=== PATIENT | female | born 2000 | race Caucasian/White ===

== ENCOUNTER 2022-06-13 23:17 | Inpatient (IN) | payer OTHER, SELFPAY ==
[2022-06-13 23:25] VITALS: BP 103/57; PULSE 81; RESP 18; TEMP 36.4; O2SAT 99; BMI 21.2
--- NOTE | 2022-06-13 23:57 | ECG_ITS ---
Test Reason : SI Blood Pressure : / mmHG Vent. Rate : 083 BPM Atrial Rate : 083 BPM P-R Int : 134 ms QRS Dur : 088 ms QT Int : 356 ms P-R-T Axes : 056 075 044 degrees QTc Int : 418 ms Normal sinus rhythm with sinus arrhythmia Normal ECG No previous ECGs available Referred By: Khari Godwin Electronically Signed By:LEIGHANN EVANS MD
--- NOTE | 2022-06-13 23:59 | ED_ITS ---
HPI - Psych General Chief Complaint: Psychiatric Symptoms <ROMEL Burns - Last Filed: 06/14/22 01:21> Stated Complaint: Crisis <ROMEL Burns Last Filed: 06/14/22 01:21> Time Seen by Provider: 06/13/22 23:54 <ROMEL Burns Last Filed: 06/14/22 01:21> Source: patient <ROMEL Burns - Last Filed: 06/14/22 01:21> Mode of arrival: ambulatory <ROMEL Burns Last Filed: 06/14/22:21> Limitations: no limitations <ROMEL Burns Last Filed: 06/14/22 01:21> History of Present Illness HPI Narrative: 22-year-old female history of anxiety, depression, bipolar disorder, PTSD, ADHD presents to the emergency department with suicidal ideation and a suicide attempt last night Patient tells me the symptoms have been worsening over the past few days. She reports that yesterday she had a suicide attempt and she took a handful of Ativan pills in hopes to kill herself. She tells me she took a handful of 0.1 mg lorazepam so, unable to tell me exactly how many she took or estimate. She tells me after she took the medication she felt sleepy and dizzy, fell sleep and felt much better in the morning. Currently not reporting any symptoms. She tells me that she has increasing life stressors however unwilling to discuss exactly what they are. She tells me she is having visual hallucinations and is seeing dark shadows, she tells me I do not let them talk to me ?and ?I try not to interact with them ?. She denies auditory and tactile hallucinations. Denies homicidal ideation. Drugs alcohol and tobacco. Patient without any medical complaints at this time. She tells me she has never had a suicide attempt in the past. Patient is currently being followed by psychiatrist Kylie at [facility]. And is currently followed by therapist at the same place her name is Helena Ojeda. <ROMEL Burns Last Filed: 06/14/22 01:21> MD complaint: suicidal ideation and feels depressed <ROMEL Burns Last Filed: 06/14/22 01:21> Related Data Home Medications: Home Medications Medication Instructions Recorded Confirmed amoxicillin 500 mg tablet 1,000 mg PO Q12H 06/14/22 06/14/22 dextroamphetamine-amphetamine ER 10 mg PO QAM 06/14/22 06/14/22 10 mg 24hr capsule,extend release (Adderall XR) lorazepam 0.5 mg tablet 1 tab PO DAILY PRN Anxiety 06/14/22 06/14/22 oxcarbazepine 600 mg tablet 600 mg PO BEDTIME 06/14/22 06/14/22 prazosin 1 mg capsule 3 mg PO BEDTIME 06/14/22 06/14/22 quetiapine 200 mg tablet,extended 200 mg PO BEDTIME 06/14/22 06/14/22 release 24 hr (Seroquel XR) quetiapine 50 mg tablet,extended 50 mg PO BEDTIME 06/14/22 06/14/22 release 24 hr (Seroquel XR) <ROMEL Burns Last Filed: 06/14/22 01:21> Allergies/Adverse Reactions: Allergies Allergy/AdvReac Type Severity Reaction Status Date / Time No Known Allergies Allergy Verified 06/13/22 23:33 <ROMEL Burns Last Filed: 06/14/22 01:21> Review of Systems Review of Systems: Constitutional : No Fever, No Chills ENT/Mouth : No Ear Pain, No Nasal Congestion, No sore throat Eyes: No Eye Pain, No Swelling, No Redness Cardiovascular : No Chest Pain, No SOB Respiratory : No Cough, No Sputum, No Dyspnea Gastrointestinal : No Nausea, No Vomiting, No Diarrhea, No Hematochezia, No Melena Genitourinary : No Dysuria, No Urinary Frequency, No Hematuria Musculoskeletal : No Myalgias Skin : No Skin Lesions, No rash Neuro : No Weakness, No Numbness, No Paresthesias, No Dizziness, No Headache Psych : positive Anxiety, positive Depression, positive SI, No HI Heme/Lymph: No Lymphadenopathy Endocrine : No Polyuria, No Polydipsia All other systems reviewed and are negative <ROMEL Burns Last Filed: 06/14/22 01:21> Yes all other systems are reviewed and are negative <ROMEL Burns - Last Filed: 06/14/22 01:21> [facility] Past Medical History Attestation statement: The following information was validated with the patient. <ROMEL Burns - Last Filed: 06/14/22 01:21> Source: old records reviewed and nursing notes reviewed <ROMEL Burns - Last Filed: 06/14/22 01:21> Social History Social History: Social History Alcohol intake: current Use of substances other than those prescribed or required for medical reasons: Yes Advance Directives: No Patient : No <ROMEL Burns - Last Filed: 06/14/22 01:21> Physical Exam Vital Signs: Vital Signs: Last Vital Signs Temp 97.9 F 06/14/22 09:21 Pulse 86 06/14/22 09:21 Resp 16 06/14/22 09:21 BP 106/60 06/14/22 09:21 Pulse Ox 96 06/14/22 09:21 O2 Del Method 06/14/22 09:21 BMI result Body Mass Index 21.2 vss <ROMEL Burns - Last Filed: 06/14/22 01:21> Vital Signs: Last Vital Signs Temp 97.9 F 06/14/22 09:21 Pulse 86 06/14/22 09:21 Resp 16 06/14/22 09:21 BP 106/60 06/14/22 09:21 Pulse Ox 96 06/14/22 09:21 O2 Del Method 06/14/22 09:21 BMI result Body Mass Index 21.2 <Adryan Flores MD - Last Filed: 06/14/22 12:56> Appearance: Alert.? Oriented X3.? No acute distress.? Head: Normocephalic, atraumatic, no step-offs or deformities Eyes: Pupils equal, round and reactive to light.? CVS: Normal heart rate and rhythm.? Pulses normal.? Respiratory: No respiratory distress.? Breath sounds normal.? Abdomen: Soft and nontender.? Skin: Skin warm and dry.? Normal skin color.? Normal skin turgor.? Extremities: No lower extremity edema.? No calf ttp. 5/5 strength to bilateral upper and lower extremities Neuro: Oriented X 3.? No motor deficit.? No sensory deficit. CN 2-12 intact <ROMEL Burns - Last Filed: 06/14/22 01:21> Course Reevaluation(s) Reevaluation #1: CBC appears to be within normal limits. Chemistry with no acute electrolyte abnormalities requiring intervention. Salicylates, acetaminophen and ethanol negative. COVID negative. Patient reports she is currently taking amoxicillin for strep throat, has no throat complaints at this time, controlling secretions well, no signs of respiratory distress speaking in full sentences. At this time will continue her home dose of amoxicillin for pharyngitis. Patient has taken 3 days worth therefore she should receive an additional 7 days worth. <ROMEL Burns - Last Filed: 06/14/22 01:21> Time: 01:19 <ROMEL Burns - Last Filed: 06/14/22 01:21> Reevaluation #2: At this time patient will be placed into physician observation to allow more time to be evaluated by the behavioral health team. At time observation was started patient on Section 12 common cooperative no acute distress will continue to monitor <ROMEL Burns - Last Filed: 06/14/22 01:21> Time: 01:20 <ROMEL Burns - Last Filed: 06/14/22 01:21> Reevaluation #3: Physician observation continued: 22-year-old female who presents emergency department for evaluation of suicide ideation and attempt yesterday by taking Ativan. She has been in the emergency department for approximately the 11 hours and 12 minutes. The patient is on a Section 12 and is waiting for care team evaluation. The patient had no complaints or incidents overnight. The patient will be kept in the emergency department Behavioral Health Unit until a disposition can be obtained. <Adryan Flores MD - Last Filed: 06/14/22 12:56> Time: 10:35 <Adryan Flores MD - Last Filed: 06/14/22 12:56> Consultations Time: 12:55 <Adryan Flores MD - Last Filed: 06/14/22 12:56> Medications Administered Generic Name Dose Route Start Last Admin Trade Name Freq PRN Reason Stop Dose Admin Amoxicillin 500 mg 06/14/22 09:00 06/14/22 08:35 Amoxicillin 500 Mg Capsule PO 500 mg BID CHICO Administration Discontinued Medications Generic Name Dose Route Start Last Admin Trade Name Freq PRN Reason Stop Dose Admin Amoxicillin 500 mg 06/14/22 01:19 06/14/22 01:57 Amoxicillin 500 Mg Capsule PO 06/14/22 01:20 500 mg ONCE ONE Administration <ROMEL Burns - Last Filed: 06/14/22 01:21> Medications Administered Generic Name Dose Route Start Last Admin Trade Name Freq PRN Reason Stop Dose Admin Amoxicillin 500 mg 06/14/22 09:00 06/14/22 08:35 Amoxicillin 500 Mg Capsule PO 500 mg BID CHICO Administration Discontinued Medications Generic Name Dose Route Start Last Admin Trade Name Freq PRN Reason Stop Dose Admin Amoxicillin 500 mg 06/14/22 01:19 06/14/22 01:57 Amoxicillin 500 Mg Capsule PO 06/14/22 01:20 500 mg ONCE ONE Administration <Adryan Flores MD - Last Filed: 06/14/22 12:56> MDM - Psych MDM Narrative Medical decision making narrative: 0000 22 year old female presents to the emergency department with depression, suicidal ideation progressively worsening over the past few days. Reports suicide attempt yesterday but trying to overdose on Ativan. Physical examination benign. Patient will be placed on a Section 12. Plan at this time medical clearance evaluation by the behavioral health team. Discussed this case w/ my attending who states no need to call poison control. <ROMEL Burns - Last Filed: 06/14/22 01:21> Medical Records Attestation: I reviewed the patient's medical records. <ROMEL Burns - Last Filed: 06/14/22 01:21> Lab Data Attestation: I reviewed the patient's lab results. <ROMEL Burns - Last Filed: 06/14/22 01:21> Result diagrams: : 06/14/22 00:44 06/14/22 00:44 <ROMEL Burns - Last Filed: 06/14/22 01:21> Labs: Lab Results 06/13/22 06/14/22 06/14/22 Range/Units 23:46 00:44 00:44 WBC 7.2 (4.8-10.8) X10*3/uL RBC 3.90 L (4.20-5.50) X10*6/uL Hgb 11.1 L (12.0-16.0) g/dl Hct 33.8 L (37.0-47.0) % MCV 86.7 (80.0-98.0) fL MCH 28.5 (27.0-33.0) pg MCHC 32.8 (31.0-35.0) g/dl RDW 13.1 (11.0-16.0) % Plt Count 256 (160-400) X10*3/uL MPV 9.9 (9.4-12.3) fL Immature Gran % (Auto) 0.3 (0.0-0.4) % Neut % (Auto) 60.5 (45-73) % Lymph % (Auto) 29.1 (20-40) % [place] % (Auto) 9.5 (2-11) % Eos % (Auto) 0.3 (0-4) % Baso % (Auto) 0.3 (0-2) % Lymph # (Auto) 2.1 (1.2-4.9) X10*3/uL [place] # (Auto) 0.7 (0.1-1.2) X10*3/uL Eos # (Auto) 0.0 (0.0-0.4) X10*3/uL Baso # (Auto) 0.0 (0.0-0.2) X10*3/uL Abs Immat Gran (auto) 0.02 (0.00-0.03) X10*3/uL Absolute Neuts (auto) 4.3 (2.0-8.3) x10*3/uL Absolute Nucleated RBC 0.000 (0.0-0.012) X10*3/uL Nucleated RBC % (auto) 0.0 (0.0-0.2) /100WBC Sodium 141 (135-145) mmol/L Potassium 4.5 (3.3-5.1) mmol/L Chloride 107 (96-108) mmol/L Carbon Dioxide 21 L (22-29) mmol/L Anion Gap 18 (12-20) BUN 9 (9-16) mg/dL Creatinine 0.70 (0.5-1.4) mg/dL Estim Creat Clear Calc 103.4 Estimated GFR > 60 Random Glucose 95 (60-115) mg/dL Calcium 9.6 (8.4-10.2) mg/dL Total Bilirubin 0.2 (0.0-1.0) mg/dL AST 13 (5-31) U/L ALT 14 (0-31) U/L Alkaline Phosphatase 74 (39-117) U/L Total Protein 7.8 (6.5-8.0) g/dL Albumin 4.6 (3.5-5.0) g/dL Salicylates < 5.0 L (15-30) mg/dL Urine Opiates Screen (Not Detect) Urine Fentanyl Screen (Not Detect) Acetaminophen < 1 (<30) mcg/mL Ur Barbiturates Screen (Not Detect) Ur Phencyclidine Scrn (Not Detect) Ur Amphetamines Screen (Not Detect) U Benzodiazepines Scrn (Not Detect) Urine Cocaine Screen (Not Detect) U Marijuana (THC) Screen (Not Detect) Ethyl Alcohol mg/dL COVID-19 ([place]) Negative (Negative) COVID-19 Clin Com See Note 06/14/22 06/14/22 Range/Units 00:44 01:02 WBC (4.8-10.8) X10*3/uL RBC (4.20-5.50) X10*6/uL Hgb (12.0-16.0) g/dl Hct (37.0-47.0) % MCV (80.0-98.0) fL MCH (27.0-33.0) pg MCHC (31.0-35.0) g/dl RDW (11.0-16.0) % Plt Count (160-400) X10*3/uL MPV (9.4-12.3) fL Immature Gran % (Auto) (0.0-0.4) % Neut % (Auto) (45-73) % Lymph % (Auto) (20-40) % [place] % (Auto) (2-11) % Eos % (Auto) (0-4) % Baso % (Auto) (0-2) % Lymph # (Auto) (1.2-4.9) X10*3/uL [place] # (Auto) (0.1-1.2) X10*3/uL Eos # (Auto) (0.0-0.4) X10*3/uL Baso # (Auto) (0.0-0.2) X10*3/uL Abs Immat Gran (auto) (0.00-0.03) X10*3/uL Absolute Neuts (auto) (2.0-8.3) x10*3/uL Absolute Nucleated RBC (0.0-0.012) X10*3/uL Nucleated RBC % (auto) (0.0-0.2) /100WBC Sodium (135-145) mmol/L Potassium (3.3-5.1) mmol/L Chloride (96-108) mmol/L Carbon Dioxide (22-29) mmol/L Anion Gap (12-20) BUN (9-16) mg/dL Creatinine (0.5-1.4) mg/dL Estim Creat Clear Calc Estimated GFR Random Glucose (60-115) mg/dL Calcium (8.4-10.2) mg/dL Total Bilirubin (0.0-1.0) mg/dL AST (5-31) U/L ALT (0-31) U/L Alkaline Phosphatase (39-117) U/L Total Protein (6.5-8.0) g/dL Albumin (3.5-5.0) g/dL Salicylates (15-30) mg/dL Urine Opiates Screen Not Detected (Not Detect) Urine Fentanyl Screen Not Detected (Not Detect) Acetaminophen (<30) mcg/mL Ur Barbiturates Screen Not Detected (Not Detect) Ur Phencyclidine Scrn Not Detected (Not Detect) Ur Amphetamines Screen Not Detected (Not Detect) U Benzodiazepines Scrn Not Detected (Not Detect) Urine Cocaine Screen Not Detected (Not Detect) U Marijuana (THC) Screen POSITIVE H (Not Detect) Ethyl Alcohol < 10 mg/dL COVID-19 ([place]) (Negative) COVID-19 Clin Com <ROMEL Burns - Last Filed: 06/14/22 01:21> Lab Results 06/13/22 06/14/22 06/14/22 Range/Units 23:46 00:44 00:44 WBC 7.2 (4.8-10.8) X10*3/uL RBC 3.90 L (4.20-5.50) X10*6/uL Hgb 11.1 L (12.0-16.0) g/dl Hct 33.8 L (37.0-47.0) % MCV 86.7 (80.0-98.0) fL MCH 28.5 (27.0-33.0) pg MCHC 32.8 (31.0-35.0) g/dl RDW 13.1 (11.0-16.0) % Plt Count 256 (160-400) X10*3/uL MPV 9.9 (9.4-12.3) fL Immature Gran % (Auto) 0.3 (0.0-0.4) % Neut % (Auto) 60.5 (45-73) % Lymph % (Auto) 29.1 (20-40) % [place] % (Auto) 9.5 (2-11) % Eos % (Auto) 0.3 (0-4) % Baso % (Auto) 0.3 (0-2) % Lymph # (Auto) 2.1 (1.2-4.9) X10*3/uL [place] # (Auto) 0.7 (0.1-1.2) X10*3/uL Eos # (Auto) 0.0 (0.0-0.4) X10*3/uL Baso # (Auto) 0.0 (0.0-0.2) X10*3/uL Abs Immat Gran (auto) 0.02 (0.00-0.03) X10*3/uL Absolute Neuts (auto) 4.3 (2.0-8.3) x10*3/uL Absolute Nucleated RBC 0.000 (0.0-0.012) X10*3/uL Nucleated RBC % (auto) 0.0 (0.0-0.2) /100WBC Sodium 141 (135-145) mmol/L Potassium 4.5 (3.3-5.1) mmol/L Chloride 107 (96-108) mmol/L Carbon Dioxide 21 L (22-29) mmol/L Anion Gap 18 (12-20) BUN 9 (9-16) mg/dL Creatinine 0.70 (0.5-1.4) mg/dL Estim Creat Clear Calc 103.4 Estimated GFR > 60 Random Glucose 95 (60-115) mg/dL Calcium 9.6 (8.4-10.2) mg/dL Total Bilirubin 0.2 (0.0-1.0) mg/dL AST 13 (5-31) U/L ALT 14 (0-31) U/L Alkaline Phosphatase 74 (39-117) U/L Total Protein 7.8 (6.5-8.0) g/dL Albumin 4.6 (3.5-5.0) g/dL Salicylates < 5.0 L (15-30) mg/dL Urine Opiates Screen (Not Detect) Urine Fentanyl Screen (Not Detect) Acetaminophen < 1 (<30) mcg/mL Ur Barbiturates Screen (Not Detect) Ur Phencyclidine Scrn (Not Detect) Ur Amphetamines Screen (Not Detect) U Benzodiazepines Scrn (Not Detect) Urine Cocaine Screen (Not Detect) U Marijuana (THC) Screen (Not Detect) Ethyl Alcohol mg/dL COVID-19 ([place]) Negative (Negative) COVID-19 Clin Com See Note 06/14/22 06/14/22 Range/Units 00:44 01:02 WBC (4.8-10.8) X10*3/uL RBC (4.20-5.50) X10*6/uL Hgb (12.0-16.0) g/dl Hct (37.0-47.0) % MCV (80.0-98.0) fL MCH (27.0-33.0) pg MCHC (31.0-35.0) g/dl RDW (11.0-16.0) % Plt Count (160-400) X10*3/uL MPV (9.4-12.3) fL Immature Gran % (Auto) (0.0-0.4) % Neut % (Auto) (45-73) % Lymph % (Auto) (20-40) % [place] % (Auto) (2-11) % Eos % (Auto) (0-4) % Baso % (Auto) (0-2) % Lymph # (Auto) (1.2-4.9) X10*3/uL [place] # (Auto) (0.1-1.2) X10*3/uL Eos # (Auto) (0.0-0.4) X10*3/uL Baso # (Auto) (0.0-0.2) X10*3/uL Abs Immat Gran (auto) (0.00-0.03) X10*3/uL Absolute Neuts (auto) (2.0-8.3) x10*3/uL Absolute Nucleated RBC (0.0-0.012) X10*3/uL Nucleated RBC % (auto) (0.0-0.2) /100WBC Sodium (135-145) mmol/L Potassium (3.3-5.1) mmol/L Chloride (96-108) mmol/L Carbon Dioxide (22-29) mmol/L Anion Gap (12-20) BUN (9-16) mg/dL Creatinine (0.5-1.4) mg/dL Estim Creat Clear Calc Estimated GFR Random Glucose (60-115) mg/dL Calcium (8.4-10.2) mg/dL Total Bilirubin (0.0-1.0) mg/dL AST (5-31) U/L ALT (0-31) U/L Alkaline Phosphatase (39-117) U/L Total Protein (6.5-8.0) g/dL Albumin (3.5-5.0) g/dL Salicylates (15-30) mg/dL Urine Opiates Screen Not Detected (Not Detect) Urine Fentanyl Screen Not Detected (Not Detect) Acetaminophen (<30) mcg/mL Ur Barbiturates Screen Not Detected (Not Detect) Ur Phencyclidine Scrn Not Detected (Not Detect) Ur Amphetamines Screen Not Detected (Not Detect) U Benzodiazepines Scrn Not Detected (Not Detect) Urine Cocaine Screen Not Detected (Not Detect) U Marijuana (THC) Screen POSITIVE H (Not Detect) Ethyl Alcohol < 10 mg/dL COVID-19 ([place]) (Negative) COVID-19 Clin Com <Adryan Flores MD - Last Filed: 06/14/22 12:56> ECG Data Attestation: I personally reviewed and interpreted this ECG as follows: <ROMEL Burns - Last Filed: 06/14/22 01:21> ECG interpretation date: 06/14/22 <ROMEL Burns - Last Filed: 06/14/22 01:21> ECG interpretation time: 00:37 <ROMEL Burns - Last Filed: 06/14/22 01:21> Prior ECG tracings: available for review <ROMEL Burns Last Filed: 06/14/22 01:21> Interpretation: Ventricular rate of 83, TX normal, QRS normal, QT/QTC normal. EKG with normal sinus rhythm with sinus arrhythmia, no ST elevations or inversions concerning for ischemia. No previous EKGs. <ROMEL Burns Last Filed: 06/14/22 01:21> Critical Care Time Critical Care Time Critical Care Time: No <ROMEL Burns Last Filed: 06/14/22 01:21> Discharge Plan Discharge Clinical Impression: Depression, Suicide attempt by benzodiazepine overdose, Suicidal ideation, Bipolar disorder <ROMEL Burns Last Filed: 06/14/22 01:21> Patient Disposition: Still a Patient <ROMEL Burns Last Filed: 06/14/22 01:21> Interventions: Admission Worksheet (ED) Last Done: 06/14/22 12:13 <ROMEL Burns Last Filed: 06/14/22 01:21>
[2022-06-14] VITALS (8 sets, daily range): BP systolic 106–133; BP diastolic 60–82; PULSE 68–86; RESP 16; TEMP 36.2–36.8; O2SAT 96–100
[2022-06-14 00:08] LABS: COVID-19 Test Negative (Negative); IDNOW Serial# 16C4AD1C
[2022-06-14 00:48] LABS: MANUAL DIFF FLAG NO
[2022-06-14 00:52] LABS: Basophils Percent Auto 0.3 % (0-2); Eosinophils Percent Auto 0.3 % (0-4); Hematocrit 33.8 % (37.0-47.0); Hemoglobin 11.1 g/dl (12.0-16.0); Imm Gran Abs Auto 0.02 X10*3/uL (0.00-0.03); Imm Gran Pct Auto 0.3 % (0.0-0.4); Lymphocytes Absolute Auto 2.1 X10*3/uL (1.2-4.9); Lymphocytes Percent Auto 29.1 % (20-40); Mean Corpuscular HGB Conc 32.8 g/dl (31.0-35.0); Mean Corpuscular Hemoglobin 28.5 pg (27.0-33.0); Mean Corpuscular Volume 86.7 fL (80.0-98.0); Mean Platelet Volume 9.9 fL (9.4-12.3); Monocytes Absolute Auto 0.7 X10*3/uL (0.1-1.2); Monocytes Percent Auto 9.5 % (2-11); Neutrophils Absolute Auto 4.3 x10*3/uL (2.0-8.3); Neutrophils Percent Auto 60.5 % (45-73); Platelet Count 256 X10*3/uL (160-400); Red Cell Distribution Width 13.1 % (11.0-16.0); White Blood Count 7.2 X10*3/uL (4.8-10.8)
--- NOTE | 2022-06-14 00:53 | PC.NURSE ---
pt got change into hospital attire by this pct ,pt lab draw and ekg was obtain ,pt is in good spirits ,pt ask for bony chuter at bedside .
[2022-06-14 01:02] LABS: Ethanol < 10 mg/dL
[2022-06-14 01:06] LABS: Acetaminophen LAB < 1 mcg/mL (<30); Alanine Aminotransferase 14 U/L (0-31); Albumin Level 4.6 g/dL (3.5-5.0); Alkaline Phosphatase 74 U/L (39-117); Anion Gap 18 (12-20); Aspartate Amino Transferase 13 U/L (5-31); Bilirubin Total 0.2 mg/dL (0.0-1.0); Blood Urea Nitrogen 9 mg/dL (9-16); Calcium 9.6 mg/dL (8.4-10.2); Carbon Dioxide 21 mmol/L (22-29); Chloride 107 mmol/L (96-108); Creatinine Clr Calc Pharmacy 103.4; Estimated Glomerular Filt Rate > 60; Glucose Random 95 mg/dL (60-115); Potassium 4.5 mmol/L (3.3-5.1); Salicylate < 5.0 mg/dL (15-30); Sodium 141 mmol/L (135-145); Total Protein 7.8 g/dL (6.5-8.0)
[2022-06-14 01:22] LABS: Amphetamine Screen Urine Not Detected (Not Detect); Barbiturates, Urine Not Detected (Not Detect); Benzodiazepines Screen Urine Not Detected (Not Detect); Cannabinoid Screen Urine POSITIVE (Not Detect); Cocaine Screen Urine Not Detected (Not Detect); Fentanyl, urine Not Detected (Not Detect); Opiate Screen Urine Not Detected (Not Detect); Phencyclidine Screen Urine Not Detected (Not Detect)
[2022-06-14] MEDS: Amoxicillin 500 MG CAPSULE PO ×3 (01:57→20:53)
--- NOTE | 2022-06-14 06:20 | MHC.CARE ---
Smart sheet submitted
--- NOTE | 2022-06-14 06:48 | PC.NURSE ---
report given to HUMZA Weaevr
--- NOTE | 2022-06-14 08:00 | PC.NURSE ---
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 Vague historian. Plan for BHN to eval.
--- NOTE | 2022-06-14 10:13 | PHA.MEDREC ---
Pharmacy Consult ? Medication Reconciliation Pharmacy has reviewed the medication reconciliation completed by Adrian. Per HUMZA Weaver patient is a poor historian and confused. The prescription for oxcarbaezpine is 600 mg at bedtime, so medication was updated on home list. Ativan was enter as 0.1 mg but filled for 0.5 mg tablet, therefore list was updated. Shital Aaron, LetitiaD
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
[2022-06-14] MEDS: QUEtiapine Fumarate 200 MG TABLET PO (20:53)
[2022-06-14] MEDS: OXcarbazepine 300 MG TABLET 600 MG PO (20:53)
[2022-06-14] MEDS: Prazosin HCL 1 MG CAPSULE 3 MG PO (20:53)
[2022-06-15] MEDS: QUEtiapine Fumarate 50 MG TABLET PO (02:07)
[2022-06-15 08:30] VITALS: BP 109/57; PULSE 102; RESP 17; TEMP 36.7; O2SAT 98
[2022-06-15] MEDS: Amoxicillin 500 MG CAPSULE PO ×2 (08:30→21:04)
[2022-06-15] MEDS: OXcarbazepine 300 MG TABLET PO (08:30)
[2022-06-15 09:21] LABS: Cholesterol 189 mg/dL; HDL Cholesterol 65 mg/dL; LDL Cholesterol Calculated 107 mg/dl; Triglycerides 87 mg/dL
[2022-06-15 09:22] LABS: Estimated Average Glucose 100 mg/dL; Hemoglobin A1c % 5.1 %
[2022-06-15 09:46] LABS: Free T4 (Free Thyroxine) 0.81 ng/dL (0.71-1.85); Thyroid Stimulating Hormone 2.82 uIU/mL (0.32-4.0)
[2022-06-15 10:00] LABS: Folate 7.6 ng/mL (> or = 4.0); Vitamin B12 361 pg/mL (200-900)
[2022-06-15] MEDS: Dextroamphetamine/Amphetamine XR 10 MG CAP.ER.24H PO (11:08)
--- NOTE | 2022-06-15 18:54 | HO.PSYCHPN ---
Subjective Subjective Date of Service: 06/15/22 Reason For Visit: SI Interim History: Discussed with team. Spoke with pt. Says her mood is decent, still didnt sleep well even with adapted physical education specialist provider adding an additional 50 mg to total 250 mg. Says she kept waking up, having nightmares even on prazosin 3 mg HS. Does not want to be on seroquel anymore, as she feels groggy the next morning, has been on various doses including XR formulation. Has tried multiple sleep aids, including trazodone, remeron with lack of efficacy. On increased trileptal dose, pt says I do feel a little calm, unclear if this is due to trileptal. She feels safe. Denies SI. Still feels depressed, rates it as a 7/10 for depression. Also says anxiety has been high. Medication Compliance: Yes Side effects from medications: No Attending Groups: Yes Review of Systems Acute medical concerns: No Medical Review of Systems: unchanged Mental Status Exam Mental Status Exam Narrative: A&O. Well groomed, good hygiene, normal body habitus. Good eye contact, attentive. No Tics or Tremors. No abnormal involuntary movements. Calm, cooperative, engaged. Non-pressured speech, spontaneous with regular rate and rhythm, normal volume and prosody. No prolonged speech latency or dysarthria. Mood is ?calm,? affect is appropriate. Denies SI/SIB/HI upon inquiry. Denies A/VH or delusional thought content. Thoughts are coherent, organized. No known cognitive or memory impairment. Insight/ Judgment fair and adequate. Diagnostics Vital Signs (24Hr): Vital Signs - 24 hr 06/14/22 20:50 06/15/22 08:30 Temperature 98.1 F 98.0 F Pulse Rate 76 102 H Respiratory Rate 16 17 Blood Pressure 121/81 109/57 L Pulse Oximetry 96 98 Oxygen Delivery Method Room Air Room Air BMI result Body Mass Index 21.2 Labs Results: 06/14/22 00:44 06/14/22 00:44 Labs: Laboratory Results - last 48 hr 06/13/22 06/14/22 06/14/22 23:46 00:44 00:44 WBC 7.2 RBC 3.90 L Hgb 11.1 L Hct 33.8 L MCV 86.7 MCH 28.5 MCHC 32.8 RDW 13.1 Plt Count 256 MPV 9.9 Immature Gran % (Auto) 0.3 Neut % (Auto) 60.5 Lymph % (Auto) 29.1 Ashley % (Auto) 9.5 Eos % (Auto) 0.3 Baso % (Auto) 0.3 Lymph # (Auto) 2.1 Ashley # (Auto) 0.7 Eos # (Auto) 0.0 Baso # (Auto) 0.0 Abs Immat Gran (auto) 0.02 Absolute Neuts (auto) 4.3 Absolute Nucleated RBC 0.000 Nucleated RBC % (auto) 0.0 Sodium 141 Potassium 4.5 Chloride 107 Carbon Dioxide 21 L Anion Gap 18 BUN 9 Creatinine 0.70 Estim Creat Clear Calc 103.4 Estimated GFR > 60 Random Glucose 95 Estimat Average Glucose Hemoglobin A1c % Calcium 9.6 Total Bilirubin 0.2 AST 13 ALT 14 Alkaline Phosphatase 74 Total Protein 7.8 Albumin 4.6 Triglycerides Cholesterol LDL Cholesterol, Calc HDL Cholesterol Vitamin B12 Folate TSH Free T4 Salicylates < 5.0 L Urine Opiates Screen Urine Fentanyl Screen Acetaminophen < 1 Ur Barbiturates Screen Ur Phencyclidine Scrn Ur Amphetamines Screen U Benzodiazepines Scrn Urine Cocaine Screen U Marijuana (THC) Screen Ethyl Alcohol COVID-19 ([place]) Negative COVID-19 Clin Com See Note 06/14/22 06/14/22 06/15/22 00:44 01:02 08:32 WBC RBC Hgb Hct MCV MCH MCHC RDW Plt Count MPV Immature Gran % (Auto) Neut % (Auto) Lymph % (Auto) Ashley % (Auto) Eos % (Auto) Baso % (Auto) Lymph # (Auto) Ashley # (Auto) Eos # (Auto) Baso # (Auto) Abs Immat Gran (auto) Absolute Neuts (auto) Absolute Nucleated RBC Nucleated RBC % (auto) Sodium Potassium Chloride Carbon Dioxide Anion Gap BUN Creatinine Estim Creat Clear Calc Estimated GFR Random Glucose Estimat Average Glucose 100 Hemoglobin A1c % 5.1 Calcium Total Bilirubin AST ALT Alkaline Phosphatase Total Protein Albumin Triglycerides Cholesterol LDL Cholesterol, Calc HDL Cholesterol Vitamin B12 Folate TSH Free T4 Salicylates Urine Opiates Screen Not Detected Urine Fentanyl Screen Not Detected Acetaminophen Ur Barbiturates Screen Not Detected Ur Phencyclidine Scrn Not Detected Ur Amphetamines Screen Not Detected U Benzodiazepines Scrn Not Detected Urine Cocaine Screen Not Detected U Marijuana (THC) Screen POSITIVE H Ethyl Alcohol < 10 COVID-19 ([place]) COVID-19 [employer] Com 06/15/22 06/15/22 08:32 08:32 WBC RBC Hgb Hct MCV MCH MCHC RDW Plt Count MPV Immature Gran % (Auto) Neut % (Auto) Lymph % (Auto) Ashley % (Auto) Eos % (Auto) Baso % (Auto) Lymph # (Auto) Ashley # (Auto) Eos # (Auto) Baso # (Auto) Abs Immat Gran (auto) Absolute Neuts (auto) Absolute Nucleated RBC Nucleated RBC % (auto) Sodium Potassium Chloride Carbon Dioxide Anion Gap BUN Creatinine Estim Creat Clear Calc Estimated GFR Random Glucose Estimat Average Glucose Hemoglobin A1c % Calcium Total Bilirubin AST ALT Alkaline Phosphatase Total Protein Albumin Triglycerides 87 Cholesterol 189 LDL Cholesterol, Calc 107 HDL Cholesterol 65 Vitamin B12 361 Folate 7.6 TSH 2.82 Free T4 0.81 Salicylates Urine Opiates Screen Urine Fentanyl Screen Acetaminophen Ur Barbiturates Screen Ur Phencyclidine Scrn Ur Amphetamines Screen U Benzodiazepines Scrn Urine Cocaine Screen U Marijuana (THC) Screen Ethyl Alcohol COVID-19 ([place]) COVID-19 Clin Com Medications Medications Current Medications Acetaminophen (Acetaminophen 325 Mg Tablet) 650 mg PO Q6H PRN PRN Reason: Headache/Pain Mild Scale (1-3) Al Hydroxide/Mg Hydroxide (Magnesium Hydrox/Alum Hydrox 30 Ml Oral.Susp) 30 ml PO Q6H PRN PRN Reason: Heartburn/Nausea Amoxicillin (Amoxicillin 500 Mg Capsule) 500 mg PO BID [facility] Last Admin: 06/15/22 08:30 Dose: 500 mg Amphetamine/Dextroamphetamine (Dextroamphetamine/Amphetamine Xr 10 Mg Cap.Er.24h) 10 mg PO DAILY [facility] Last Admin: 06/15/22 11:08 Dose: 10 mg Hydroxyzine HCl (Hydroxyzine Hcl 25 Mg Tablet) 25 mg PO Q6H PRN PRN Reason: Anxiety Magnesium Hydroxide (Milk Of Magnesia 30 Ml Oral.Susp) 30 ml PO DAILY PRN PRN Reason: Constipation Nicotine Polacrilex (Nicotine Polacrilex 2 Mg Gum) 4 mg BUCCAL Q2H PRN PRN Reason: Nicotine Cravings Oxcarbazepine (Oxcarbazepine 300 Mg Tablet) 600 mg PO BEDTIME [facility] Last Admin: 06/14/22 20:53 Dose: 600 mg Oxcarbazepine (Oxcarbazepine 300 Mg Tablet) 300 mg PO DAILY [facility] Last Admin: 06/15/22 08:30 Dose: 300 mg Prazosin HCl (Prazosin Hcl 1 Mg Capsule) 3 mg PO BEDTIME [facility]; Protocol Last Admin: 06/14/22 20:53 Dose: 3 mg Quetiapine Fumarate (Quetiapine Fumarate 200 Mg Tablet) 200 mg PO BEDTIME [facility] Last Admin: 06/14/22 20:53 Dose: 200 mg Trazodone HCl (Trazodone Hcl 50 Mg Tablet) 50 mg PO BEDTIME PRN PRN Reason: Insomnia Allergies Allergies Allergy/AdvReac Type Severity Reaction Status Date / Time No Known Allergies Allergy Verified 06/13/22 23:33 Assessment & Plan Assessment & Plan (1) Bipolar 1 disorder: Status: Acute Code(s): F31.9 - Bipolar disorder, unspecified (2) Borderline personality disorder: Status: Acute Code(s): F60.3 - Borderline personality disorder (3) ADHD (attention deficit hyperactivity disorder): Status: Acute Code(s): F90.9 - Attention-deficit hyperactivity disorder, unspecified type (4) Post traumatic stress disorder (PTSD): Status: Acute Code(s): F43.10 - Post-traumatic stress disorder, unspecified Plan Karley is a 22 y.o. female who carries a dx of BPD, Bipolar I DO, PTSD, ADHD. She? presented to [facility] with SI and question of a suicide attempt by OD on 24 of her 1 mg ativan pills (utox negative for benzos?). Complains of VH but denies auditory or tactile hallucinations. Endorses hx of hypomanic and depressive episodes lasting weeks, but typically functions highly and is getting her master's degree. Currently complaining of depression, suicidal thoughts, and poor sleep. Reports binge drinking bx of weekends. Plan: Will discontinue daytime seroquel, as she complains of sedation, consolidate to 200 mg HS to help with sleep. Continue adderall XR 15 mg daily due to reported benefit, denies exacerbating VH. Will hold ativan due to alcohol use. Continue trileptal 600 mg HS and add 300 mg daily to target mood lability, impulsivity. 06/15: Pt is requesting to d/c seroquel as she has lack of benefit for sleep or mood, has tried various doses, feels groggy in the morning. Has trialed various sleep aids, benzos not appropriate due to binge drinking. Discussed low dose zyprexa due to sedating quality, may help with anxiety and for mood stability. Will trial 5 mg HS. Reviewed lipids labs. Q15 min safety checks, CV Monitor response to medications. Monitor for safety in the milieu. Discharge on stabilization. Patient seen. Chart reviewed. Discussed with team. Obtain collateral contact info?as needed I spent minutes with the patient and/or on the patient floor today, greater than?50% of which was spent counseling/coordinating care. Patient educated on: diagnosis, medication risk/benefits and therapeutic strategies Reason for contiued inpatient stay Substantial Risk for: harm to self, rapid decompensation and med/psych decompensation
[2022-06-15 20:58] VITALS: BP 121/84; PULSE 78; RESP 16; TEMP 36.6; O2SAT 98
[2022-06-15] MEDS: OXcarbazepine 300 MG TABLET 600 MG PO (21:03)
[2022-06-15] MEDS: OLANZapine 5 MG TABLET PO (21:03)
[2022-06-15] MEDS: Prazosin HCL 1 MG CAPSULE 3 MG PO (21:04)
[2022-06-16] MEDS: hydrOXYzine HCL 25 MG TABLET PO (00:19)
[2022-06-16] MEDS: traZODone HCL 50 MG TABLET PO (00:19)
[2022-06-16 08:15] VITALS: BP 115/60; PULSE 83; RESP 16; TEMP 36.8; O2SAT 98
[2022-06-16] MEDS: OXcarbazepine 300 MG TABLET PO (08:17)
[2022-06-16] MEDS: Amoxicillin 500 MG CAPSULE PO ×2 (08:17→22:04)
[2022-06-16] MEDS: Dextroamphetamine/Amphetamine XR 10 MG CAP.ER.24H PO (08:17)
--- NOTE | 2022-06-16 17:56 | P.PNPSI_ITS ---
Subjective Subjective Date of Service: 06/16/22 Reason For Visit: SI Interim History: calm, cooperative, bright. some difficulty sleeping. agrees to increase zyprexa to 7.5 mg QHS, T/C increasing prazosin to 4 mg as well. no other complaints or requests. per staff, 3-day submitted. visible. eating meals. taking meds. dep/anx 03/14. pleasant, conversational. denies SI/HI/AVH. s lept. Mental Status Exam Mental Status Exam Narrative: A&O. Well groomed, good hygiene, normal body habitus. Good eye contact, attentive. No Tics or Tremors. No abnormal involuntary movements. Calm, c ooperative, engaged. Non-pressured speech, spontaneous with regular rate and rhythm, normal volume and prosody. No prolonged speech latency or dysarthria. affect is flexible, normo-intense, non-labile. no SI/HI/AVH expressed. Thoughts are coherent, organized. No known cognitive or memory impairment. Insight/ Judgment fair and adequate. Diagnostics Vital Signs (24Hr): Vital Signs - 24 hr 06/15/22 20:58 06/16/22 08:15 Temperature 97.8 F 98.3 F Pulse Rate 78 83 Respiratory Rate 16 16 Blood Pressure 121/84 115/60 Pulse Oximetry 98 98 Oxygen Delivery Method Room Air Room Air BMI result Body Mass Index 21.2 Labs Results: 06/14/22 00:44 06/14/22 00:44 Labs: Laboratory Results - last 48 hr 06/15/22 06/15/22 06/15/22 08:32 08:32 08:32 Estimat Average Glucose 100 Hemoglobin A1c % 5.1 Triglycerides 87 Cholesterol 189 LDL Cholesterol, Calc 107 HDL Cholesterol 65 Vitamin B12 361 Folate 7.6 TSH 2.82 Free T4 0.81 Medications Medications Current Medications Acetaminophen (Acetaminophen 325 Mg Tablet) 650 mg PO Q6H PRN PRN Reason: Headache/Pain Mild Scale (1-3) Al Hydroxide/Mg Hydroxide (Magnesium Hydrox/Alum Hydrox 30 Ml Oral.Susp) 30 ml PO Q6H PRN PRN Reason: Heartburn/Nausea Amoxicillin (Amoxicillin 500 Mg Capsule) 500 mg PO BID [facility] Last Admin: 06/16/22 08:17 Dose: 500 mg Amphetamine/Dextroamphetamine (Dextroamphetamine/Amphetamine Xr 10 Mg Cap.Er.24h) 10 mg PO DAILY [facility] Last Admin: 06/16/22 08:17 Dose: 10 mg Hydroxyzine HCl (Hydroxyzine Hcl 25 Mg Tablet) 25 mg PO Q6H PRN PRN Reason: Anxiety Last Admin: 06/16/22 00:19 Dose: 25 mg Magnesium Hydroxide (Milk Of Magnesia 30 Ml Oral.Susp) 30 ml PO DAILY PRN PRN Reason: Constipation Nicotine Polacrilex (Nicotine Polacrilex 2 Mg Gum) 4 mg BUCCAL Q2H PRN PRN Reason: Nicotine Cravings Olanzapine (Olanzapine 7.5 Mg Tablet) 7.5 mg PO BEDTIME [facility] Oxcarbazepine (Oxcarbazepine 300 Mg Tablet) 600 mg PO BEDTIME [facility] Last Admin: 06/15/22 21:03 Dose: 600 mg Oxcarbazepine (Oxcarbazepine 300 Mg Tablet) 300 mg PO DAILY [facility] Last Admin: 06/16/22 08:17 Dose: 300 mg Prazosin HCl (Prazosin Hcl 1 Mg Capsule) 3 mg PO BEDTIME [facility]; Protocol Last Admin: 06/15/22 21:04 Dose: 3 mg Trazodone HCl (Trazodone Hcl 50 Mg Tablet) 50 mg PO BEDTIME PRN PRN Reason: Insomnia Last Admin: 06/16/22 00:19 Dose: 50 mg Allergies Allergies Allergy/AdvReac Type Severity Reaction Status Date / Time No Known Allergies Allergy Verified 06/13/22 23:33 Assessment & Plan Assessment & Plan (1) Bipolar 1 disorder: Status: Acute Code(s): F31.9 - Bipolar disorder, unspecified (2) Borderline personality disorder: Status: Acute Code(s): F60.3 - Borderline personality disorder (3) ADHD (attention deficit hyperactivity disorder): Status: Acute Code(s): F90.9 - Attention-deficit hyperactivity disorder, unspecified type (4) Post traumatic stress disorder (PTSD): Status: Acute Code(s): F43.10 - Post-traumatic stress disorder, unspecified Plan Karley is a 22 y.o. female who carries a dx of BPD, Bipolar I DO, PTSD, ADHD. She? presented to [facility] ED with SI and question of a suicide attempt by OD on 24 of her 1 mg ativan pills (utox negative for benzos?). Complains of VH but denies auditory or tactile hallucinations. Endorses hx of hypomanic and depressive episodes lasting weeks, but typically functions highly and is getting her master's degree. Currently complaining of depression, suicidal thoughts, and poor sleep. Reports binge drinking bx of weekends. 06/14: Will discontinue daytime seroquel, as she complains of sedation, consolidate to 200 mg HS to help with sleep. Continue adderall XR 15 mg daily due to reported benefit, denies exacerbating VH. Will hold ativan due to alcohol use. Continue trileptal 600 mg HS and add 300 mg daily to target mood lability, impulsivity. 06/15: Pt is requesting to d/c seroquel as she has lack of benefit for sleep or mood, has tried various doses, feels groggy in the morning. Has trialed various sleep aids, benzos not appropriate due to binge drinking. Discussed low dose zyprexa due to sedating quality, may help with anxiety and for mood stability. Will trial 5 mg HS. Reviewed lipids labs. 06/16: sleeping difficulties continue. increase HS zyprexa to 7.5 mg for insomnia. T/C increasing prazosin to 4 mg for the same (in person with trauma Hx). I spent ___20___ minutes with the patient and/or on the patient floor today, gre ater than?50% of which was spent counseling/coordinating care. Patient educated on: medication risk/benefits Reason for contiued inpatient stay Substantial Risk for: harm to self and med/psych decompensation
[2022-06-16 22:02] VITALS: BP 125/76; PULSE 80; RESP 18; TEMP 36.6; O2SAT 100
[2022-06-16] MEDS: Prazosin HCL 1 MG CAPSULE 3 MG PO (22:03)
[2022-06-16] MEDS: OXcarbazepine 300 MG TABLET 600 MG PO (22:03)
[2022-06-16] MEDS: OLANZapine 7.5 MG TABLET PO (22:04)
[2022-06-17 08:51] VITALS: BP 125/71; PULSE 110; RESP 16; TEMP 36.3; O2SAT 98
[2022-06-17] MEDS: Dextroamphetamine/Amphetamine XR 10 MG CAP.ER.24H PO (08:53)
[2022-06-17] MEDS: OXcarbazepine 300 MG TABLET PO (08:53)
[2022-06-17] MEDS: Amoxicillin 500 MG CAPSULE PO ×2 (08:54→21:03)
[2022-06-17 18:00] VITALS: BP 122/72; PULSE 78; RESP 16; TEMP 36.7; O2SAT 98
[2022-06-17] MEDS: Prazosin HCL 1 MG CAPSULE 4 MG PO (21:02)
[2022-06-17] MEDS: OXcarbazepine 300 MG TABLET 600 MG PO (21:03)
[2022-06-17] MEDS: OLANZapine 7.5 MG TABLET PO (21:03)
--- NOTE | 2022-06-17 21:38 | HO.PSYCHPN ---
Subjective Subjective Date of Service: 06/17/22 Reason For Visit: SI Interim History: calm, cooperative, pleasant. denies depression, reports anxiety 01/12. slept through the night on zyprexa 7.5 mg, although asks to increase prazosin to 4 mg for nightmares, which she did have last night. otherwise no requests or complaints. per staff, alert, awake, pleasant. nightmares. meds helpful. 03/14 anx/dep. multiple visitors. Mental Status Exam Mental Status Exam Narrative: A&O. Well groomed, good hygiene, normal body habitus. Good eye contact, attentive. No Tics or Tremors. No abnormal involuntary movements. Calm, cooperative, engaged. Non-pressured speech, spontaneous with regular rate and rhythm, normal volume and prosody. No prolonged speech latency or dysarthria. affect is flexible, normo-intense, non-labile. no SI/HI/AVH expressed. Thoughts are coherent, organized. No known cognitive or memory impairment. Insight/ Judgment fair and adequate. Diagnostics Vital Signs (24Hr): Vital Signs - 24 hr 06/16/22 22:02 06/17/22 08:51 Temperature 97.9 F 97.4 F Pulse Rate 80 110 H Respiratory Rate 18 16 Blood Pressure 125/76 125/71 Pulse Oximetry 100 98 Oxygen Delivery Method Room Air Room Air BMI result Body Mass Index 21.2 Labs Results: 06/14/22 00:44 06/14/22 00:44 Medications Medications Current Medications Acetaminophen (Acetaminophen 325 Mg Tablet) 650 mg PO Q6H PRN PRN Reason: Headache/Pain Mild Scale (1-3) Al Hydroxide/Mg Hydroxide (Magnesium Hydrox/Alum Hydrox 30 Ml Oral.Susp) 30 ml PO Q6H PRN PRN Reason: Heartburn/Nausea Amoxicillin (Amoxicillin 500 Mg Capsule) 500 mg PO BID [facility] Last Admin: 06/17/22 21:03 Dose: 500 mg Amphetamine/Dextroamphetamine (Dextroamphetamine/Amphetamine Xr 10 Mg Cap.Er.24h) 10 mg PO DAILY [facility] Last Admin: 06/17/22 08:53 Dose: 10 mg Hydroxyzine HCl (Hydroxyzine Hcl 25 Mg Tablet) 25 mg PO Q6H PRN PRN Reason: Anxiety Last Admin: 06/16/22 00:19 Dose: 25 mg Magnesium Hydroxide (Milk Of Magnesia 30 Ml Oral.Susp) 30 ml PO DAILY PRN PRN Reason: Constipation Nicotine Polacrilex (Nicotine Polacrilex 2 Mg Gum) 4 mg BUCCAL Q2H PRN PRN Reason: Nicotine Cravings Olanzapine (Olanzapine 7.5 Mg Tablet) 7.5 mg PO BEDTIME [facility] Last Admin: 06/17/22 21:03 Dose: 7.5 mg Oxcarbazepine (Oxcarbazepine 300 Mg Tablet) 600 mg PO BEDTIME [facility] Last Admin: 06/17/22 21:03 Dose: 600 mg Oxcarbazepine (Oxcarbazepine 300 Mg Tablet) 300 mg PO DAILY [facility] Last Admin: 06/17/22 08:53 Dose: 300 mg Prazosin HCl (Prazosin Hcl 1 Mg Capsule) 4 mg PO BEDTIME [facility]; Protocol Last Admin: 06/17/22 21:02 Dose: 4 mg Trazodone HCl (Trazodone Hcl 50 Mg Tablet) 50 mg PO BEDTIME PRN PRN Reason: Insomnia Last Admin: 06/16/22 00:19 Dose: 50 mg Allergies Allergies Allergy/AdvReac Type Severity Reaction Status Date / Time No Known Allergies Allergy Verified 06/13/22 23:33 Assessment & Plan Assessment & Plan (1) Bipolar 1 disorder: Status: Acute Code(s): F31.9 - Bipolar disorder, unspecified (2) Borderline personality disorder: Status: Acute Code(s): F60.3 - Borderline personality disorder (3) ADHD (attention deficit hyperactivity disorder): Status: Acute Code(s): F90.9 - Attention-deficit hyperactivity disorder, unspecified type (4) Post traumatic stress disorder (PTSD): Status: Acute Code(s): F43.10 - Post-traumatic stress disorder, unspecified Plan Karley is a 22 y.o. female who carries a dx of BPD, Bipolar I DO, PTSD, ADHD. She? presented to [facility] with SI and question of a suicide attempt by OD on 24 of her 1 mg ativan pills (utox negative for benzos?). Complains of VH but denies auditory or tactile hallucinations. Endorses hx of hypomanic and depressive episodes lasting weeks, but typically functions highly and is getting her master's degree. Currently complaining of depression, suicidal thoughts, and poor sleep. Reports binge drinking bx of weekends. 06/14: Will discontinue daytime seroquel, as she complains of sedation, consolidate to 200 mg HS to help with sleep. Continue adderall XR 15 mg daily due to reported benefit, denies exacerbating VH. Will hold ativan due to alcohol use. Continue trileptal 600 mg HS and add 300 mg daily to target mood lability, impulsivity. 06/15: Pt is requesting to d/c seroquel as she has lack of benefit for sleep or mood, has tried various doses, feels groggy in the morning. Has trialed various sleep aids, benzos not appropriate due to binge drinking. Discussed low dose zyprexa due to sedating quality, may help with anxiety and for mood stability. Will trial 5 mg HS. Reviewed lipids labs. 06/16: sleeping difficulties continue. increase HS zyprexa to 7.5 mg for insomnia. T/C increasing prazosin to 4 mg for the same (in person with trauma Hx). 06/17: slept better on zyprexa 7.5, but had nightmares. increased prazosin to 4. nml MSE. I spent __15____ minutes with the patient and/or on the patient floor today, greater than?50% of which was spent counseling/coordinating care. Reason for contiued inpatient stay Substantial Risk for: inability to function and med/psych decompensation
[2022-06-18 07:30] VITALS: BP 135/87; PULSE 88; TEMP 36.7; O2SAT 99
[2022-06-18] MEDS: OXcarbazepine 300 MG TABLET PO (07:35)
[2022-06-18] MEDS: Amoxicillin 500 MG CAPSULE PO ×2 (07:36→21:02)
[2022-06-18] MEDS: Dextroamphetamine/Amphetamine XR 10 MG CAP.ER.24H PO (07:36)
--- NOTE | 2022-06-18 16:29 | P.PNPSI_ITS ---
Subjective Subjective Date of Service: 06/18/22 Reason For Visit: SI Interim History: Discussed with team. Pt reports the medications are working. Appreciates the increase in prazosin, has had no nightmares, slept better on increased zyprexa, overall says I feel better. Getting 6 hours of sleep. Appetite is increased, discussed metabolic SE of zyprexa. Says she will have her friends hold onto her ativan, which she gets prescribed by her OP psychiatrist, and only use as needed. Says she intends to stop drinking alcohol. Medication Compliance: Yes Side effects from medications: No Attending Groups: Yes Review of Systems Acute medical concerns: No Medical Review of Systems: unchanged Mental Status Exam Mental Status Exam Narrative: A&O. Well groomed, good hygiene, normal body habitus. Good eye contact, attentive. No Tics or Tremors. No abnormal involuntary movements. Calm, cooperative, engaged. Non-pressured speech, spontaneous with regular rate and rhythm, normal volume and prosody. No prolonged speech latency or dysarthria. a ffect is flexible, normo-intense, non-labile.? no SI/HI/AVH expressed.? Thoughts are coherent, organized. No known cognitive or memory impairment. Insight/ Judgment fair and adequate. Diagnostics Vital Signs (24Hr): Vital Signs - 24 hr 06/17/22 18:00 06/18/22 07:30 Temperature 98.1 F 98.1 F Pulse Rate 78 88 Respiratory Rate 16 Blood Pressure 122/72 135/87 Pulse Oximetry 98 99 Oxygen Delivery Method Room Air Room Air BMI result Body Mass Index 21.2 Labs Results: 06/14/22 00:44 06/14/22 00:44 Medications Medications Current Medications Acetaminophen (Acetaminophen 325 Mg Tablet) 650 mg PO Q6H PRN PRN Reason: Headache/Pain Mild Scale (1-3) Al Hydroxide/Mg Hydroxide (Magnesium Hydrox/Alum Hydrox 30 Ml Oral.Susp) 30 ml PO Q6H PRN PRN Reason: Heartburn/Nausea Amoxicillin (Amoxicillin 500 Mg Capsule) 500 mg PO BID [facility] Last Admin: 06/18/22 07:36 Dose: 500 mg Amphetamine/Dextroamphetamine (Dextroamphetamine/Amphetamine Xr 10 Mg Cap.Er.24h) 10 mg PO DAILY [facility] Last Admin: 06/18/22 07:36 Dose: 10 mg Hydroxyzine HCl (Hydroxyzine Hcl 25 Mg Tablet) 25 mg PO Q6H PRN PRN Reason: Anxiety Last Admin: 06/16/22 00:19 Dose: 25 mg Magnesium Hydroxide (Milk Of Magnesia 30 Ml Oral.Susp) 30 ml PO DAILY PRN PRN Reason: Constipation Nicotine Polacrilex (Nicotine Polacrilex 2 Mg Gum) 4 mg BUCCAL Q2H PRN PRN Reason: Nicotine Cravings Olanzapine (Olanzapine 7.5 Mg Tablet) 7.5 mg PO BEDTIME [facility] Last Admin: 06/17/22 21:03 Dose: 7.5 mg Oxcarbazepine (Oxcarbazepine 300 Mg Tablet) 600 mg PO BEDTIME [facility] Last Admin: 06/17/22 21:03 Dose: 600 mg Oxcarbazepine (Oxcarbazepine 300 Mg Tablet) 300 mg PO DAILY [facility] Last Admin: 06/18/22 07:35 Dose: 300 mg Prazosin HCl (Prazosin Hcl 1 Mg Capsule) 4 mg PO BEDTIME [facility]; Protocol Last Admin: 06/17/22 21:02 Dose: 4 mg Trazodone HCl (Trazodone Hcl 50 Mg Tablet) 50 mg PO BEDTIME PRN PRN Reason: Insomnia Last Admin: 06/16/22 00:19 Dose: 50 mg Allergies Allergies Allergy/AdvReac Type Severity Reaction Status Date / Time No Known Allergies Allergy Verified 06/13/22 23:33 Assessment & Plan Assessment & Plan (1) Bipolar 1 disorder: Status: Acute Code(s): F31.9 - Bipolar disorder, unspecified (2) Borderline personality disorder: Status: Acute Code(s): F60.3 - Borderline personality disorder (3) ADHD (attention deficit hyperactivity disorder): Status: Acute Code(s): F90.9 - Attention-deficit hyperactivity disorder, unspecified type (4) Post traumatic stress disorder (PTSD): Status: Acute Code(s): F43.10 - Post-traumatic stress disorder, unspecified Plan Karley is a 22 y.o. female who carries a dx of BPD, Bipolar I DO, PTSD, ADHD. She? presented to [facility] [place] with SI and question of a suicide attempt by OD on 24 of her 1 mg ativan pills (utox negative for benzos?). Complains of VH but denies auditory or tactile hallucinations. Endorses hx of hypomanic and depressive episodes lasting weeks, but typically functions highly and is getting her master's degree. Currently complaining of depression, suicidal thoughts, and poor sleep. Reports binge drinking bx of weekends. 06/14: Will discontinue daytime seroquel, as she complains of sedation, consolidate to 200 mg HS to help with sleep. Continue adderall XR 15 mg daily due to reported benefit, denies exacerbating VH. Will hold ativan due to alcohol use. Continue trileptal 600 mg HS and add 300 mg daily to target mood lability, impulsivity. 06/15: Pt is requesting to d/c seroquel as she has lack of benefit for sleep or mood, has tried various doses, feels groggy in the morning. Has trialed various sleep aids, benzos not appropriate due to binge drinking. Discussed low dose zyprexa due to sedating quality, may help with anxiety and for mood stability. W ill trial 5 mg HS. Reviewed lipids labs. 06/16: sleeping difficulties continue. increase HS zyprexa to 7.5 mg for insomnia. T/C increasing prazosin to 4 mg for the same (in person with trauma Hx). 06/17: slept better on zyprexa 7.5, but had nightmares. increased prazosin to 4. nml MSE. 06/18: Reports benefits on meds, sleeping, wants to discharge tomorrow. I spent minutes with the patient and/or on the patient floor today, greater than?50% of which was spent counseling/coordinating care. Patient educated on: diagnosis, medication risk/benefits and therapeutic strategies Reason for contiued inpatient stay Substantial Risk for: stable for discharge
[2022-06-18 20:15] VITALS: BP 131/82; PULSE 78; RESP 18; TEMP 36.7; O2SAT 99
[2022-06-18] MEDS: OXcarbazepine 300 MG TABLET 600 MG PO (21:02)
[2022-06-18] MEDS: OLANZapine 7.5 MG TABLET PO (21:02)
[2022-06-18] MEDS: Prazosin HCL 1 MG CAPSULE 4 MG PO (21:02)
[2022-06-19 08:10] VITALS: PULSE 85; RESP 18; TEMP 36.6; O2SAT 99
[2022-06-19] MEDS: Amoxicillin 500 MG CAPSULE PO (08:48)
[2022-06-19] MEDS: Dextroamphetamine/Amphetamine XR 10 MG CAP.ER.24H PO (08:48)
[2022-06-19] MEDS: OXcarbazepine 300 MG TABLET PO (08:49)
--- NOTE | 2022-06-19 10:42 | PM.PSYDC ---
DS: Providers Provider Date of Service: 06/19/22 Date of admission: 06/14/22 12:40 Date of discharge: 06/19/22 Primary care physician: Unknown Physician Admitting clinician: Mayte Freeman Attending physician on admission: Rudolph Hudson Attending physician on discharge: Rudolph Hudson Discharging clinician: Mayte Freeman DS: Diagnosis Discharge Diagnosis (1) Bipolar 1 disorder: Status: Acute (2) Borderline personality disorder: Status: Acute (3) ADHD (attention deficit hyperactivity disorder): Status: Acute (4) Post traumatic stress disorder (PTSD): Status: Acute DS: Medications Discharge Medications Home Medications: Home Medications Medication Instructions Recorded Confirmed amoxicillin 500 mg tablet 1,000 mg PO Q12H 06/14/22 06/14/22 dextroamphetamine-amphetamine ER 10 mg PO QAM 06/14/22 06/14/22 10 mg 24hr capsule,extend release (Adderall XR) lorazepam 0.5 mg tablet 1 tab PO DAILY PRN Anxiety 06/14/22 06/14/22 oxcarbazepine 600 mg tablet 600 mg PO BEDTIME 06/14/22 06/14/22 prazosin 1 mg capsule 3 mg PO BEDTIME 06/14/22 06/14/22 quetiapine 200 mg tablet,extended 200 mg PO BEDTIME 06/14/22 06/14/22 release 24 hr (Seroquel XR) quetiapine 50 mg tablet,extended 50 mg PO BEDTIME 06/14/22 06/14/22 release 24 hr (Seroquel XR) Mental Status Exam Mental Status Exam Narrative: A&O. Well groomed, good hygiene, normal body habitus. Good eye contact, attentive. No Tics or Tremors. No abnormal involuntary movements. Calm, cooperative, engaged. Non-pressured speech, spontaneous with regular rate and rhythm, normal volume and prosody. No prolonged speech latency or dysarthria. affect is flexible, normo-intense, non-labile.? no SI/HI/AVH expressed.? Thoughts are coherent, organized. No known cognitive or memory impairment. Insight/ Judgment fair and adequate. Data Data Completed and Pending Completed studies during hospitalization [Text1]: 06/13/22 06/14/22 06/14/22 23:46 00:44 00:44 WBC 7.2 RBC 3.90 L Hgb 11.1 L Hct 33.8 L MCV 86.7 MCH 28.5 MCHC 32.8 RDW 13.1 Plt Count 256 MPV 9.9 Immature Gran % (Auto) 0.3 Neut % (Auto) 60.5 Lymph % (Auto) 29.1 Armstrong % (Auto) 9.5 Eos % (Auto) 0.3 Baso % (Auto) 0.3 Lymph # (Auto) 2.1 Armstrong # (Auto) 0.7 Eos # (Auto) 0.0 Baso # (Auto) 0.0 Abs Immat Gran (auto) 0.02 Absolute Neuts (auto) 4.3 Absolute Nucleated RBC 0.000 Nucleated RBC % (auto) 0.0 Sodium 141 Potassium 4.5 Chloride 107 Carbon Dioxide 21 L Anion Gap 18 BUN 9 Creatinine 0.70 Estim Creat Clear Calc 103.4 Estimated GFR > 60 Random Glucose 95 Estimat Average Glucose Hemoglobin A1c % Calcium 9.6 Total Bilirubin 0.2 AST 13 ALT 14 Alkaline Phosphatase 74 Total Protein 7.8 Albumin 4.6 Triglycerides Cholesterol LDL Cholesterol, Calc HDL Cholesterol Vitamin B12 Folate TSH Free T4 Salicylates < 5.0 L Urine Opiates Screen Urine Fentanyl Screen Acetaminophen < 1 Ur Barbiturates Screen Ur Phencyclidine Scrn Ur Amphetamines Screen U Benzodiazepines Scrn Urine Cocaine Screen U Marijuana (THC) Screen Ethyl Alcohol COVID-19 ([place]) Negative COVID-19 Clin Com See Note 06/14/22 06/14/22 06/15/22 00:44 01:02 08:32 WBC RBC Hgb Hct MCV MCH MCHC RDW Plt Count MPV Immature Gran % (Auto) Neut % (Auto) Lymph % (Auto) Armstrong % (Auto) Eos % (Auto) Baso % (Auto) Lymph # (Auto) Armstrong # (Auto) Eos # (Auto) Baso # (Auto) Abs Immat Gran (auto) Absolute Neuts (auto) Absolute Nucleated RBC Nucleated RBC % (auto) Sodium Potassium Chloride Carbon Dioxide Anion Gap BUN Creatinine Estim Creat Clear Calc Estimated GFR Random Glucose Estimat Average Glucose 100 Hemoglobin A1c % 5.1 Calcium Total Bilirubin AST ALT Alkaline Phosphatase Total Protein Albumin Triglycerides Cholesterol LDL Cholesterol, Calc HDL Cholesterol Vitamin B12 Folate TSH Free T4 Salicylates Urine Opiates Screen Not Detected Urine Fentanyl Screen Not Detected Acetaminophen Ur Barbiturates Screen Not Detected Ur Phencyclidine Scrn Not Detected Ur Amphetamines Screen Not Detected U Benzodiazepines Scrn Not Detected Urine Cocaine Screen Not Detected U Marijuana (THC) Screen POSITIVE H Ethyl Alcohol < 10 COVID-19 ([place]) COVID-19 Clin Com 06/15/22 06/15/22 08:32 08:32 WBC RBC Hgb Hct MCV MCH MCHC RDW Plt Count MPV Immature Gran % (Auto) Neut % (Auto) Lymph % (Auto) Armstrong % (Auto) Eos % (Auto) Baso % (Auto) Lymph # (Auto) Armstrong # (Auto) Eos # (Auto) Baso # (Auto) Abs Immat Gran (auto) Absolute Neuts (auto) Absolute Nucleated RBC Nucleated RBC % (auto) Sodium Potassium Chloride Carbon Dioxide Anion Gap BUN Creatinine Estim Creat Clear Calc Estimated GFR Random Glucose Estimat Average Glucose Hemoglobin A1c % Calcium Total Bilirubin AST ALT Alkaline Phosphatase Total Protein Albumin Triglycerides 87 Cholesterol 189 LDL Cholesterol, Calc 107 HDL Cholesterol 65 Vitamin B12 361 Folate 7.6 TSH 2.82 Free T4 0.81 Salicylates Urine Opiates Screen Urine Fentanyl Screen Acetaminophen Ur Barbiturates Screen Ur Phencyclidine Scrn Ur Amphetamines Screen U Benzodiazepines Scrn Urine Cocaine Screen U Marijuana (THC) Screen Ethyl Alcohol COVID-19 ([place]) COVID-19 Clin Com DS: Summary Hospital Course Hospital Course: Karley is a 22 y.o. female who carries a dx of BPD, Bipolar I DO, PTSD, ADHD. She? presented to [facility] with SI and question of a suicide attempt by OD on 24 of her 1 mg ativan pills (utox negative for benzos?). Complains of VH but denies auditory or tactile hallucinations. Endorses hx of hypomanic and depressive episodes lasting weeks, but typically functions highly and is getting her master's degree. Currently complaining of depression, suicidal thoughts, and poor sleep. Reports binge drinking bx of weekends. 06/14:? Will discontinue daytime seroquel, as she complains of sedation, consolidate to 200 mg HS to help with sleep. Continue adderall XR 15 mg daily due to reported benefit, denies exacerbating VH. Will hold ativan due to alcohol use. Continue trileptal 600 mg HS and add 300 mg daily to target mood lability, impulsivity. 06/15: Pt is requesting to d/c seroquel as she has lack of benefit for sleep or mood, has tried various doses, feels groggy in the morning. Has trialed various sleep aids, benzos not appropriate due to binge drinking. Discussed low dose zyprexa due to sedating quality, may help with anxiety and for mood stability. Will trial 5 mg HS. Reviewed lipids labs. 06/16: sleeping difficulties continue.? increase HS zyprexa to 7.5 mg for insomnia.? T/C increasing prazosin to 4 mg for the same (in person with trauma Hx). 06/17: slept better on zyprexa 7.5, but had nightmares.? increased prazosin to 4.? nml MSE. Time Spent with Patient Time attestation: Total time spent providing and/or coordinating discharge services: Discharge Plan Discharge Anticipated Discharge Date/Time: 06/19/22 10:45 Patient Disposition: Home, Self-Care Discharge Diagnosis: Bipolar II DO, ADHD Referrals: [facility] Counselor Meeting [Other] - 06/20/22 1:30 am (Tamra Giraldo (senior sales compensation [employer]) has requested a meeting with you and the communications instructor for the purpose of acclimating you back on to campus and to provide resources. ) Medication provider: [place] [Other] - 06/21/22 1:00 pm (Telehealth) Therapist: [place] [Other] - 06/22/22 1:00 pm (Telehealth) [place] [Physician] - 1 Week Discharge Medications: New dextroamphetamine-amphetamine [Adderall XR] 15 mg capsule,extended release 24hr 15 mg PO DAILY Qty: 30 0RF Rx Instructions: Partial Fill upon patient request. oxcarbazepine 300 mg Tablet 300 mg PO DAILY Qty: 30 0RF olanzapine 7.5 mg Tablet 7.5 mg PO BEDTIME Qty: 30 0RF prazosin 2 mg capsule 4 mg PO BEDTIME Qty: 60 0RF Continued lorazepam 0.5 mg tablet 1 tab PO DAILY PRN (Reason: Anxiety) amoxicillin 500 mg Tablet 1,000 mg PO Q12H Qty: 4 0RF oxcarbazepine 600 mg Tablet 600 mg PO BEDTIME Qty: 30 0RF Discontinued prazosin 1 mg Capsule 3 mg PO BEDTIME dextroamphetamine-amphetamine [Adderall XR] 10 mg Capsule,Extended Release 24hr 10 mg PO QAM quetiapine [Seroquel XR] 200 mg Tablet Extended Release 24 Hr 200 mg PO BEDTIME quetiapine [Seroquel XR] 50 mg Tablet Extended Release 24 Hr 50 mg PO BEDTIME Discharge Orders: Discharge Order (Routine); Ordered 06/19/22 Ordered By: Mayte Freeman Diet: Advance to usual diet Activity on Discharge: As tolerated Stand Alone Forms: Patient Portal Discharge page, Community Support Care Plan Goals: Continue psychiatric medications as prescribed and follow up with outpatient referrals and PCP. Health Concerns: Sleep Hygiene Depression Anxiety Plan of Treatment: Attend follow up appointments with OP psych services and PCP Patient will continue on psychotropic medication regimen for mood stability Take medications as directed A one month supply of medication has been sent to your pharmacy Crisis Team if needed [phone] Call and or return if needed Assessment: Risk assessment at time of discharge:? Patient was interviewed prior to discharge and found to be fully oriented and without any SI or HI. Patient has insight and demonstrates good judgment in terms of wanting to pursue treatment. Patient is not in imminent risk of harm to self or others and has a safety plan that includes presenting to the closest ER or calling 911 if feeling unsafe.? Patient has been observed closely by nursing and unit staff throughout admission; patient has not engaged in any behaviors that suggest dangerousness to self or others and has demonstrated appropriate behaviors and impulse control
--- NOTE | 2022-06-19 13:37 | PC.NURSE ---
Pt ready and aware for discharge denies SI/HI/VH/AH Pt denies physical complaints at this time. Reviewed discharge instructions including meds and appointments, Pt verbalized understanding. Pt states she will be returning to college and lives with her friends/roommates.
== END 2022-06-19 13:35 | disposition home or self-care (01) | DRG 753 ==
LOC: HO.ED 06-14 12:13 → HO.PADLT16 06-14 12:50
PROVIDERS: Emergency Medicine; Physician Assistant; Admitting Provider Psychiatry & Neurology Psychiatry; Emergency Provider Emergency Medicine Emergency Medical Services; Visit Provider Registered Nurse
DX: F31.81 Bipolar II disorder (principal); R45.851 Suicidal ideations; F43.10 Post-traumatic stress disorder, unspecified; F60.3 Borderline personality disorder; F90.9 Attention-deficit hyperactivity disorder, unspecified type; Z20.822 Contact with and (suspected) exposure to COVID-19; Z91.51 Personal history of suicidal behavior; Z79.899 Other long term (current) drug therapy
CPT/HCPCS: 36415; 80053; 80061; 80143; 80179; 80307; 82077; 82607; 82746; 83036; 84439; 84443; 85025; 87635; 90792; 93005; 99285